=== PATIENT | female | born 1935 | race Caucasian/White ===

== ENCOUNTER 2017-06-04 05:59 | Day surgery (SDC) | payer MEDICARE, OTHER ==
[~2017-06-04] VITALS: Ht 170.2 cm; Wt 62.1 kg
[~2017-06-04 05:59] MED LIST: ACET325 PO; AMLO5 PO; AMOX875 PO; ANTOXYBENA BOTHEARS; BENZ100A PO; BISA5EC PO; CALCIUM 500 +1 EAC2 PO; CALCIUM/VITAMIN D PO; CHOL10002 PO; CIPDEXSU BOTHEARS; CITRACAL-VIT D1 EAC2 PO; CYAN500 PO; DRON400T PO; ERYT1OIN BOTHEYES; FLUO10 PO; Flonase 0.05% N16 GM; HYDR1TAB94 PO; LEVSOD50 PO; LEVSOD75 PO; METO25 PO; METO25ER PO; RANI150 PO; SENN187 PO; TOCO400 PO; Therapeutic M1 EAC5 PO; VITAMIN B12-FO1 EACH PO; VITAMIN B122500 MC1 PO; WARF5 PO
== END 2017-06-04 23:14 | disposition home or self-care (01) ==
LOC: ORSCMMR 05:59 → ORD 07:30 → ORSCMMR 23:14
PROVIDERS: Orthopaedic Surgery
PROC: 0PSJ04Z Reposition Left Radius with Internal Fixation Device, Open Approach (ICD-10-PCS; principal; 2017-06-04 07:30)
DX: S52.592A Other fractures of lower end of left radius, initial encounter for closed fracture (principal); I10 Essential (primary) hypertension; I48.91 Unspecified atrial fibrillation; Z79.01 Long term (current) use of anticoagulants; Z79.899 Other long term (current) drug therapy
CPT/HCPCS: 73100; C1713; J0690; J1100; J1885; J2270; J2405; J3010; J7120

== ENCOUNTER 2018-11-14 19:03 | Inpatient (IN) | payer MEDICARE, OTHER ==
[~2018-11-14] VITALS: Ht 170.2 cm; Wt 64.5 kg
[~2018-11-14 19:03] MED LIST changes: -VITAMIN B122500 MC1 PO
[2018-11-14] MEDS ORDERED: Toprol Xl50 MG PO (19:40)
[2018-11-14] MEDS ORDERED: OMEPRAZOLE20 MG PO (19:41)
[2018-11-14] MEDS ORDERED: LEVSOD75 PO (19:42)
[2018-11-14] MEDS ORDERED: OXYB5ER PO (19:42)
[2018-11-14] MEDS ORDERED: CALCIUM + D3 E1 EACH PO (19:43)
[2018-11-14] MEDS ORDERED: PRESERVISION A1 EACH PO (19:44)
[2018-11-14 19:50] LABS: BASOPHILS ABSOLUTE AUTO 0.05 K/mm3 (0.00-0.23); BASOPHILS PERCENT AUTO 1 % (0-2); EOSINOPHILS ABSOLUTE AUTO 0.14 K/mm3 (0.00-0.68); EOSINOPHILS PERCENT AUTO 2 % (0-6); Hematocrit 38.2 % (33.0-51.0); Hemoglobin 12.2 g/dL (11.5-16.0); IMMATURE GRAN ABSOLUTE AUTO 0.02 K/mm3 (0.00-0.10); IMMATURE GRAN PERCENT AUTO 0 % (0-1); LYMPHOCYTES ABSOLUTE AUTO 0.89 K/mm3 (0.84-5.20); LYMPHOCYTES PERCENT AUTO 13 % (21-46); MONOCYTES ABSOLUTE AUTO 0.63 K/mm3 (0.16-1.47); MONOCYTES PERCENT AUTO 9 % (4-13); Mean Corpuscular HGB 29.8 pg (26.0-34.0); Mean Corpuscular HGB Conc 31.9 g/dL (31.5-36.5); Mean Corpuscular Volume 93 fL (80-100); Mean Platelet Volume 10.3 fL (9.1-12.4); NEUTROPHILS ABSOLUTE AUTO 5.03 K/mm3 (1.96-9.15); NEUTROPHILS PERCENT AUTO 74 % (41-73); Platelet Count 292 K/mm3 (150-400); RDW Coefficient Variation 14.3 % (11.7-14.2); RDW Standard Deviation 48.6 fL (35.1-46.3); White Blood Cell Count 6.76 K/mm3 (4.00-11.30)
[2018-11-14 20:04] LABS: International Normalized Ratio 2.68
[2018-11-14 20:10] LABS: Alanine Aminotransfer (ALT/SGP 20 U/L (12-78); Albumin, Blood 3.3 g/dL (3.4-5.0); Albumin/Globulin Ratio 0.8 (0.8-1.8); Alk Phos 96 U/L (50-136); Anion Gap 7 mmol/L (6-16); Aspartate Aminotrans (AST/SGOT 21 U/L (12-37); Bilirubin, Total 0.2 mg/dL (0.1-1.0); Blood Urea Nitrogen 16 mg/dL (8-24); Bun/Creatinine Ratio 20.7 (12.0-20.0); CO2, Blood 29 mmol/L (21-32); Calcium, Blood 9.2 mg/dL (8.5-10.1); Chloride, Blood 104 mmol/L (98-108); Creatinine, Blood 0.77 mg/dL (0.40-1.00); Globulin, Blood 3.9 g/dL (2.2-4.0); Glomerular Filtration Rate >60 (60-); Glucose, Blood 110 mg/dL (70-99); Potassium, Blood 3.6 mmol/L (3.5-5.5); Sodium, Blood 140 mmol/L (136-145); Total Protein, Blood 7.2 g/dL (6.4-8.2); Troponin I <0.015 ng/mL (0.000-0.040)
[2018-11-14] MEDS ORDERED: VITAMIN B122500 MC1 PO (20:24)
--- NOTE | 2018-11-15 01:30 | NUR ---
ASSUMED CARE PT ARRIVES TO PCU 12 FROM [facility] IN [facility]OSPITAL BED. SHE IS AOX4 AT THIS TIME. O2 SATS OF 93% ON RA. PRESSURE DRESSING NOTED TO L CHEST AND SHOULDER OVER PACER SITE. NO REDNESS, SWELLING OR DRAINAGE NOTED AROUND DRESSING SITE. PT REPORTING SLIGHT SORENESS TO INCISION SITE, BUT DENIES PAIN TO SURROUNDING AREA. DENIES DIZZINESS, LIGHTHEADEDNESS OR SHORTNESS OF BREATH. PT ORIENTED TO ROOM AND CALL LIGHT, ENCOURAGED TO CALL FOR ASSISTANCE WITH AMBULATION. FAMILY AT BEDSIDE. WILL CONTINUE WITH ADMISSION AND MONITORING. BED IN LOW POSITION, CALL LIGHT IN REACH. BED ALARM SET FOR SAFETY.
--- NOTE | 2018-11-15 05:55 | NUR ---
SHIFT SUMMARY PT HAS REMAINED AOX4 THROUGHOUT SHIFT. VSS. PLEASANT AND COOPERATIVE WITH CARE. CARDIAC RHYTHM HAS REMAINED IN NSR WITH FIRST DEGREE HB ND PVC'S, NO NOTED PAUSES SINCE RETURN FROM [facility] AND PACER PLACEMENT. PT MEDICATED ONCE FOR PAIN TO PACER SITE THAT DECREASED WITH ORDERED MEDICATION. NO SWELLING OR DRAINAGE NOTED TO SURGICAL SITE OR AROUND DRESSING- PT DENIES PAIN ON PALPATION AROUND SITE. CONTINUES TO AMBULATE WITH STANDBY ASSIST TO BATHROOM WITHOUT DIFFICULTY. NO OTHER CHANGES NOTED FROM INITIAL ASSESSMENT. WILL CONTINUE TO MONITOR AND REPORT TO ONCOMING SHIFT RN. BED IN LOW POSITION, CALL LIGHT IN REACH. BED ALARM SET FOR SAFETY. FAMILY MEMBER REMAINS AT BEDSIDE.
[2018-11-15 06:14] LABS: BASOPHILS ABSOLUTE AUTO 0.02 K/mm3 (0.00-0.23); BASOPHILS PERCENT AUTO 0 % (0-2); EOSINOPHILS ABSOLUTE AUTO 0.04 K/mm3 (0.00-0.68); EOSINOPHILS PERCENT AUTO 1 % (0-6); Hematocrit 37.5 % (33.0-51.0); Hemoglobin 12.1 g/dL (11.5-16.0); IMMATURE GRAN ABSOLUTE AUTO 0.03 K/mm3 (0.00-0.10); IMMATURE GRAN PERCENT AUTO 0 % (0-1); LYMPHOCYTES PERCENT AUTO 5 % (21-46); MONOCYTES ABSOLUTE AUTO 0.56 K/mm3 (0.16-1.47); MONOCYTES PERCENT AUTO 7 % (4-13); Mean Corpuscular HGB 29.8 pg (26.0-34.0); Mean Corpuscular HGB Conc 32.3 g/dL (31.5-36.5); Mean Corpuscular Volume 92 fL (80-100); Mean Platelet Volume 10.5 fL (9.1-12.4); NEUTROPHILS ABSOLUTE AUTO 7.53 K/mm3 (1.96-9.15); NEUTROPHILS PERCENT AUTO 88 % (41-73); Platelet Count 257 K/mm3 (150-400); RDW Coefficient Variation 14.1 % (11.7-14.2); RDW Standard Deviation 48.3 fL (35.1-46.3); Red Blood Cell Count 4.06 M/mm3 (3.80-5.20); White Blood Cell Count 8.58 K/mm3 (4.00-11.30)
[2018-11-15 06:27] LABS: Alanine Aminotransfer (ALT/SGP 22 U/L (12-78); Albumin, Blood 3.3 g/dL (3.4-5.0); Albumin/Globulin Ratio 0.9 (0.8-1.8); Alk Phos 93 U/L (50-136); Anion Gap 6 mmol/L (6-16); Aspartate Aminotrans (AST/SGOT 23 U/L (12-37); Bilirubin, Total 0.5 mg/dL (0.1-1.0); Blood Urea Nitrogen 10 mg/dL (8-24); Bun/Creatinine Ratio 18.2 (12.0-20.0); CO2, Blood 29 mmol/L (21-32); Calcium, Blood 8.6 mg/dL (8.5-10.1); Chloride, Blood 106 mmol/L (98-108); Creatinine, Blood 0.55 mg/dL (0.40-1.00); Globulin, Blood 3.7 g/dL (2.2-4.0); Glomerular Filtration Rate >60 (60-); Glucose, Blood 109 mg/dL (70-99); Magnesium, Blood 1.9 mg/dL (1.6-2.4); Potassium, Blood 3.2 mmol/L (3.5-5.5); Sodium, Blood 141 mmol/L (136-145)
[2018-11-15 06:31] LABS: International Normalized Ratio 2.17; Prothrombin Time Results 21.4 Sec (9.7-11.5)
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
--- NOTE | 2018-11-15 17:09 | NUR ---
SHIFT SUMMARY PT RESTING IN BED THROUGHOUT THE DAY. VSS. ALERT AND ORIENTED X3. LUNG SOUNDS CLEAR, NSR WITH 1ST DEGREE HEART BLOCK ON TELE, RATE 90s-100s. LEFT CHEST SOFT, NO BLEED OR HEMATOMA, OPSITE DRSG CDI, NO CHANGE TODAY. C/O 3/10 PAIN TO INCISION SITE, MEDICATED WITH PRN PAIN MEDS. PT AMBULATING TO BATHROOM WITH STANDBY ASSIST. WILL CONTINUE TO MONITOR.
--- NOTE | 2018-11-15 19:30 | NUR ---
ASSUMED CARE ASSUMED PT CARE AT APPROXIMATELY 1900. PT IS AOX4. VSS. PACER SITE WITH CLEAR OPSITE DRESSING OVER INCISION SITE WITH SMALL AMOUNT OF BLOOD DRAINAGE UNDER DRESSING. NO BRUISING OR SWELLING NOTED TO AREA. PT REPORTING SLIGHT ACHING TO MUSCLE TISSUE AT PACER PLACEMENT SITE, BUT DENIES SHARP OR EXTREME DISCOMFORT. DENIES PAIN WITH L ARM MOVEMENT. WILL CONTINUE TO MONITOR FOR CHANGES. BED IN LOW POSITION, CALL LIGHT IN REACH.
--- NOTE | 2018-11-16 05:23 | NUR ---
SHIFT SUMMARY PT HAS REMAINED AOX4 THROUGHOUT SHIFT. VSS. PLEASANT AND COOPERATIVE WITH CARE. PT CONTINUES TO AMBULATE WITH STANDBY ASSIST TO RESTROOM WITH MINIMAL DIFFICULTY. PACER SITE REMAINS UNCHANGED FROM INITIAL ASSESSMENT. PT RESTED THROUGHOUT MUCH OF THE NIGHT WITH SLEEP STUDY IN PROGRESS, WAKING ONCE TO USE RESTROOM. PT MEDICATED ONCE FOR PAIN TO PACER SITE THAT DECREASED WITH ORDERED MEDICATION. NO OTHER CHANGES NOTED FROM INITIAL ASSESSMENT. WILL CONTINUE TO MONITOR AND REPORT TO ONCOMING SHIFT RN. BED IN LOW POSITION, CALL LIGHT IN REACH.
[2018-11-16 06:44] LABS: International Normalized Ratio 2.79; Prothrombin Time Results 26.9 Sec (9.7-11.5)
[2018-11-16 06:48] LABS: Anion Gap 4 mmol/L (6-16); Blood Urea Nitrogen 13 mg/dL (8-24); CO2, Blood 32 mmol/L (21-32); Calcium, Blood 9.1 mg/dL (8.5-10.1); Chloride, Blood 104 mmol/L (98-108); Creatinine, Blood 0.77 mg/dL (0.40-1.00); Glomerular Filtration Rate >60 (60-); Glucose, Blood 105 mg/dL (70-99); Magnesium, Blood 2.2 mg/dL (1.6-2.4); Sodium, Blood 140 mmol/L (136-145)
--- NOTE | 2018-11-16 16:01 | NUR ---
DISCHARGE NOTE PT STABLE FOR DISCHARGE. IV REMOVED. DISCHARGE INSTRUCTIONS, DISCHARGE MEDICATIONS, AND PACEMAKER EDUCATION REVIEWED WITH PT AND FAMILY. PT AND FAMILY VERBALIZE UNDERSTANDING AND DENY QUESTIONS. PT DISCHARGED VIA WHEELCHAIR TO WAITING CAR.
== END 2018-11-16 15:56 | disposition home or self-care (01) | DRG 244 ==
LOC: ER 19:03 → PCU 21:37
PROVIDERS: Emergency Medicine; Family Medicine; Internal Medicine Cardiovascular Disease; Nurse Practitioner Acute Care; ADMIT Internal Medicine
PROC: 30233K1 Transfusion of Nonautologous Frozen Plasma into Peripheral Vein, Percutaneous Approach (ICD-10-PCS; principal; 2018-11-14)
PROC: 0JH606Z Insertion of Pacemaker, Dual Chamber into Chest Subcutaneous Tissue and Fascia, Open Approach (ICD-10-PCS; 2018-11-14)
PROC: 02H63JZ Insertion of Pacemaker Lead into Right Atrium, Percutaneous Approach (ICD-10-PCS; 2018-11-14)
PROC: 02HL3JZ Insertion of Pacemaker Lead into Left Ventricle, Percutaneous Approach (ICD-10-PCS; 2018-11-14)
DX: I49.5 Sick sinus syndrome (principal); Z86.711 Personal history of pulmonary embolism; E03.9 Hypothyroidism, unspecified; I48.2 Chronic atrial fibrillation; Z85.3 Personal history of malignant neoplasm of breast; K21.9 Gastro-esophageal reflux disease without esophagitis; M81.0 Age-related osteoporosis without current pathological fracture; Z79.01 Long term (current) use of anticoagulants; I10 Essential (primary) hypertension; I49.1 Atrial premature depolarization
CPT/HCPCS: 33208; 36415; 36416; 36430; 71045; 71046; 80048; 80053; 83735; 84443; 84484; 85025; 85610; 86900; 86901; 93005; 93010; 93225; 93226; 93306; 94640; 94760; 94762; 96361; 96365; 99152; 99153; 99285-25; A9270; C1785; C1898; J0461; J0690; J1644; J2250; J3010; J3480; J7030; J7040; P9059; Q9967

== ENCOUNTER 2019-01-02 11:32 | Emergency (ER) | payer MEDICARE, OTHER ==
[~2019-01-02] VITALS: Ht 170.2 cm; Wt 59.0 kg
[~2019-01-02 11:32] MED LIST changes: +CALCIUM + D3 E1 EACH PO; +OMEPRAZOLE20 MG PO; +OXYB5ER PO; +PRESERVISION A1 EACH PO; +Toprol Xl50 MG PO; +VITAMIN B122500 MC1 PO
[2019-01-02 12:37] LABS: Source, Urine Clean Catch
[2019-01-02 12:40] LABS: BASOPHILS ABSOLUTE AUTO 0.05 K/mm3 (0.00-0.23); BASOPHILS PERCENT AUTO 1 % (0-2); EOSINOPHILS ABSOLUTE AUTO 0.03 K/mm3 (0.00-0.68); EOSINOPHILS PERCENT AUTO 0 % (0-6); Hematocrit 35.1 % (33.0-51.0); Hemoglobin 11.3 g/dL (11.5-16.0); IMMATURE GRAN ABSOLUTE AUTO 0.02 K/mm3 (0.00-0.10); IMMATURE GRAN PERCENT AUTO 0 % (0-1); LYMPHOCYTES ABSOLUTE AUTO 0.74 K/mm3 (0.84-5.20); LYMPHOCYTES PERCENT AUTO 11 % (21-46); MONOCYTES ABSOLUTE AUTO 0.39 K/mm3 (0.16-1.47); MONOCYTES PERCENT AUTO 6 % (4-13); Mean Corpuscular HGB 29.6 pg (26.0-34.0); Mean Corpuscular HGB Conc 32.2 g/dL (31.5-36.5); Mean Corpuscular Volume 92 fL (80-100); Mean Platelet Volume 10.1 fL (9.1-12.4); NEUTROPHILS ABSOLUTE AUTO 5.46 K/mm3 (1.96-9.15); NEUTROPHILS PERCENT AUTO 82 % (41-73); Platelet Count 301 K/mm3 (150-400); RDW Coefficient Variation 14.2 % (11.7-14.2); RDW Standard Deviation 48.5 fL (35.1-46.3); Red Blood Cell Count 3.82 M/mm3 (3.80-5.20); White Blood Cell Count 6.69 K/mm3 (4.00-11.30)
[2019-01-02 12:43] LABS: Bilirubin, Urine Neg (Neg); Blood, Urine 2+ (Neg); Glucose Qualitative, Urine Neg (Neg); Ketones, Urine Neg (Neg); Leukocyte Esterase, Urine 1+ (Neg); Nitrite, Urine Neg (Neg); Protein, Urine 1+ (Neg); Specific Gravity, Urine 1.015 (1.003-1.022); Urobilinogen, Urine NORM (Normal)
[2019-01-02 12:49] LABS: Appearance, Urine Clear (Clear)
[2019-01-02 12:50] LABS: Color, Urine Yellow (P-Yellow)
[2019-01-02 12:54] LABS: Red Blood Cells, Urine 0-2 /hpf (0-2); Squamous Epithelial Cells Few /hpf (Few); Transitional Epithelial Cells Rare /hpf (0-Rare); White Blood Cells, Urine 0-2 /hpf (0-5)
[2019-01-02 12:55] LABS: Bacteria Few /hpf
[2019-01-02 13:05] LABS: Alanine Aminotransfer (ALT/SGP 28 U/L (12-78); Albumin, Blood 3.4 g/dL (3.4-5.0); Albumin/Globulin Ratio 0.8 (0.8-1.8); Alk Phos 97 U/L (50-136); Anion Gap 5 mmol/L (6-16); Aspartate Aminotrans (AST/SGOT 21 U/L (12-37); Bilirubin, Total 0.7 mg/dL (0.1-1.0); Blood Urea Nitrogen 15 mg/dL (8-24); Bun/Creatinine Ratio 19.4 (12.0-20.0); CO2, Blood 28 mmol/L (21-32); Calcium, Blood 9.1 mg/dL (8.5-10.1); Chloride, Blood 106 mmol/L (98-108); Creatinine, Blood 0.78 mg/dL (0.40-1.00); Glomerular Filtration Rate >60 (60-); Glucose, Blood 106 mg/dL (70-99); Potassium, Blood 3.5 mmol/L (3.5-5.5); Sodium, Blood 139 mmol/L (136-145); Total Protein, Blood 7.4 g/dL (6.4-8.2)
[2019-01-02 17:06] LABS: Free Thyroxine 1.24 ng/dL (0.70-1.60); Triiodothyronine, Free 1.91 pg/mL (2.18-3.98); Troponin I <0.015 ng/mL (0.000-0.040)
[2019-01-02] MEDS ORDERED: PROM25 PO (17:48)
== END 2019-01-02 18:10 | disposition home or self-care (01) ==
LOC: ER 11:32
PROVIDERS: Emergency Medicine; Physician Assistant
DX: R10.11 Right upper quadrant pain (principal); R11.0 Nausea; I10 Essential (primary) hypertension; I48.91 Unspecified atrial fibrillation; K21.9 Gastro-esophageal reflux disease without esophagitis; E03.9 Hypothyroidism, unspecified; Z88.2 Allergy status to sulfonamides; Z88.1 Allergy status to other antibiotic agents; Z79.899 Other long term (current) drug therapy; Z79.01 Long term (current) use of anticoagulants
CPT/HCPCS: 36415; 80053; 81001; 83690; 84439; 84443; 84481; 84484; 85025; 87077; 87086; 87186; 93005; 93010; 99283-25; J2405

== ENCOUNTER 2019-05-29 15:21 | Emergency (ER) | payer MEDICARE, OTHER ==
[~2019-05-29] VITALS: Ht 170.2 cm; Wt 61.7 kg
[~2019-05-29 15:21] MED LIST changes: +PROM25 PO
[2019-05-29] MEDS ORDERED: Roxicodone5 MG PO (19:04)
[2019-05-29] MEDS ORDERED: ONDA4ODT MM (19:16)
[2019-06-08] MEDS ORDERED: Zantac150 MG PO (14:21)
[2019-06-08] MEDS ORDERED: Prozac20 MG PO (14:21)
[2019-06-08] MEDS ORDERED: DRON400T PO (14:22)
[2019-06-08] MEDS ORDERED: FURO20 PO (14:22)
[2019-06-08] MEDS ORDERED: Nexium40 MG PO (14:22)
[2019-06-08] MEDS ORDERED: METO100ER PO (14:23)
[2019-06-08] MEDS ORDERED: POTA10T PO (14:23)
== END 2019-05-29 19:44 | disposition home or self-care (01) ==
LOC: ER 15:21
DX: S42.211A Unspecified displaced fracture of surgical neck of right humerus, initial encounter for closed fracture (principal); I48.91 Unspecified atrial fibrillation; I10 Essential (primary) hypertension; E03.9 Hypothyroidism, unspecified; Z88.2 Allergy status to sulfonamides; Z88.1 Allergy status to other antibiotic agents; Z88.8 Allergy status to other drugs, medicaments and biological substances; Z79.899 Other long term (current) drug therapy; Z86.718 Personal history of other venous thrombosis and embolism; W19.XXXA Unspecified fall, initial encounter
CPT/HCPCS: 29105; 73060; 99283-25; A9270; A9270-GY

== ENCOUNTER 2019-06-13 08:29 | Day surgery (SDC) | payer MEDICARE, OTHER ==
[~2019-06-13] VITALS: Ht 170.2 cm; Wt 62.9 kg
[~2019-06-13 08:29] MED LIST changes: +FURO20 PO; +METO100ER PO; +Nexium40 MG PO; +ONDA4ODT MM; +POTA10T PO; +Prozac20 MG PO; +Roxicodone5 MG PO; +Zantac150 MG PO
[2019-06-13 08:48] LABS: International Normalized Ratio 1.1; Prothrombin Time Results 11.7 Sec (9.7-11.5)
--- NOTE | 2019-06-13 12:50 | NUR ---
06/13/19 1250 Arthur Palacio LATE ENTRY FOR 1115. PT GIVEN ORTHO COCKTAIL PER DR LITTLE'S ORDERS AT END OF CASE. 50ML INJ AT [address] LITTLE.
== END 2019-06-13 12:56 | disposition home or self-care (01) ==
LOC: ORSCSDS 08:29
PROVIDERS: Orthopaedic Surgery
PROC: 0PSC34Z Reposition Right Humeral Head with Internal Fixation Device, Percutaneous Approach (ICD-10-PCS; principal; 2019-06-13 10:15)
DX: S42.291A Other displaced fracture of upper end of right humerus, initial encounter for closed fracture (principal); I48.91 Unspecified atrial fibrillation; Z79.01 Long term (current) use of anticoagulants; I10 Essential (primary) hypertension; K21.9 Gastro-esophageal reflux disease without esophagitis; Z79.899 Other long term (current) drug therapy
CPT/HCPCS: 36415; 85610; 85730; C1713; C1769; J0171; J0690; J0735; J1100; J1885; J2250; J2405; J2550; J2704; J2795; J3010; J7120

== ENCOUNTER → 2019-11-11 | Outpatient (CLI) | payer MEDICARE, OTHER | END | disposition home or self-care (01) | LOC: LAB SHORT 18:23 → LAB 18:23 | DX: R82.998 Other abnormal findings in urine (principal) | CPT/HCPCS: 87086 ==

== ENCOUNTER 2020-02-12 14:50 | Emergency (ER) | payer MEDICARE, OTHER ==
[~2020-02-12] VITALS: Ht 170.2 cm; Wt 56.7 kg
[~2020-02-12 14:50] MED LIST changes: +LANOXIN125 MCG PO; +PROM12.5S PR; +Ranitidine HCl150 M1 PO; +TRAM50 PO
[2020-02-12 15:51] LABS: BASOPHILS ABSOLUTE AUTO 0.01 K/mm3 (0.00-0.23); BASOPHILS PERCENT AUTO 0 % (0-2); EOSINOPHILS PERCENT AUTO 0 % (0-6); IMMATURE GRAN ABSOLUTE AUTO 0.03 K/mm3 (0.00-0.10); IMMATURE GRAN PERCENT AUTO 0 % (0-1); LYMPHOCYTES ABSOLUTE AUTO 0.39 K/mm3 (0.84-5.20); LYMPHOCYTES PERCENT AUTO 6 % (21-46); MONOCYTES ABSOLUTE AUTO 0.35 K/mm3 (0.16-1.47); MONOCYTES PERCENT AUTO 5 % (4-13); Mean Corpuscular HGB 30.4 pg (26.0-34.0); Mean Corpuscular HGB Conc 32.5 g/dL (31.5-36.5); Mean Corpuscular Volume 94 fL (80-100); Mean Platelet Volume 10.4 fL (9.1-12.4); NEUTROPHILS ABSOLUTE AUTO 6.26 K/mm3 (1.96-9.15); NEUTROPHILS PERCENT AUTO 89 % (41-73); Platelet Count 291 K/mm3 (150-400); RDW Coefficient Variation 13.6 % (11.7-14.2); RDW Standard Deviation 46.5 fL (35.1-46.3); Red Blood Cell Count 4.28 M/mm3 (3.80-5.20); White Blood Cell Count 7.04 K/mm3 (4.00-11.30)
[2020-02-12 16:14] LABS: Albumin, Blood 3.4 g/dL (3.4-5.0); Albumin/Globulin Ratio 0.8 (0.8-1.8); Bilirubin, Total 0.5 mg/dL (0.1-1.0); Bun/Creatinine Ratio 20.5 (12.0-20.0); Creatinine, Blood 0.98 mg/dL (0.40-1.00); Globulin, Blood 4.4 g/dL (2.2-4.0); Potassium, Blood 3.3 mmol/L (3.5-5.5); Total Protein, Blood 7.8 g/dL (6.4-8.2)
== END 2020-02-12 20:15 | disposition home or self-care (01) ==
LOC: ER 14:50
PROVIDERS: Physician Assistant
DX: U07.1 COVID-19 (principal); Z88.1 Allergy status to other antibiotic agents; Z88.2 Allergy status to sulfonamides; Z88.8 Allergy status to other drugs, medicaments and biological substances; Z79.01 Long term (current) use of anticoagulants; Z79.899 Other long term (current) drug therapy
CPT/HCPCS: 71045; 80053; 83880; 84145; 85025; 99284-25; U0002

== ENCOUNTER 2020-09-03 10:28 | Day surgery (SDC) | payer MEDICARE, OTHER ==
[~2020-09-03] VITALS: Ht 170.2 cm; Wt 59.5 kg
== END 2020-09-03 16:42 | disposition home or self-care (01) ==
LOC: ORSCSDS 10:28
PROVIDERS: Orthopaedic Surgery
PROC: 0PPF04Z Removal of Internal Fixation Device from Right Humeral Shaft, Open Approach (ICD-10-PCS; principal; 2020-09-03 12:15)
DX: T84.84XA Pain due to internal orthopedic prosthetic devices, implants and grafts, initial encounter (principal); I10 Essential (primary) hypertension; I50.9 Heart failure, unspecified; I48.0 Paroxysmal atrial fibrillation; Z79.01 Long term (current) use of anticoagulants; Z95.0 Presence of cardiac pacemaker; Z86.718 Personal history of other venous thrombosis and embolism; K21.9 Gastro-esophageal reflux disease without esophagitis; F41.8 Other specified anxiety disorders; Z79.899 Other long term (current) drug therapy
CPT/HCPCS: 36415; 85610; 85730; A9270; J0690; J1100; J2250; J2370; J2405; J2704; J3010; J7120

== ENCOUNTER 2021-01-07 23:33 | Emergency (ER) | payer MEDICARE, OTHER ==
[~2021-01-07] VITALS: Ht 170.2 cm; Wt 59.0 kg
[2021-01-08 01:35] LABS: Calcium, Ionized (POC) 1.15 mmol/L (1.10-1.46); Chloride (POC) 100 mmol/L (98-108); Creatinine (POC) 0.7 mg/dL (0.6-1.0); Glucose (ISTAT POC) 145 mg/dL (70-99); Hemoglobin (POC) 14.3 g/dL (12.0-16.0); Potassium (POC) 3.1 mmol/L (3.5-5.5); Sodium (POC) 140 mmol/L (135-148); Total CO2 (POC) 26 mmol/L (21-32)
== END 2021-01-08 02:17 | disposition home or self-care (01) ==
LOC: ER 23:33
PROVIDERS: Emergency Medicine
DX: R11.2 Nausea with vomiting, unspecified (principal); E87.6 Hypokalemia; I10 Essential (primary) hypertension; Z95.0 Presence of cardiac pacemaker; Z79.01 Long term (current) use of anticoagulants; Z88.2 Allergy status to sulfonamides; Z79.899 Other long term (current) drug therapy
CPT/HCPCS: 80047; 85014; 93005; 93010; 99283-25; A9270

== ENCOUNTER → 2022-08-04 | Outpatient (CLI) | payer MEDICARE, OTHER | LOC: LAB SHORT 18:45 → LAB 18:45 | DX: R32 Unspecified urinary incontinence (principal) | CPT/HCPCS: 87086 ==